=== PATIENT | male | born 1955 | race Caucasian/White ===

== ENCOUNTER 2023-07-01 11:27 | Emergency (ER) | payer MEDICARE ==
[2023-07-01] MEDS ORDERED: traMADol 50 MG Tab PO ONE (11:55)
== END 2023-07-01 13:05 | disposition home or self-care (01) ==
LOC: JD.ED 11:27
DX: S52.501A Unspecified fracture of the lower end of right radius, initial encounter for closed fracture (principal); Z86.16 Personal history of COVID-19; W18.31XA Fall on same level due to stepping on an object, initial encounter
CPT/HCPCS: 29125; 73110; 99283; A9270; 99282